=== PATIENT | male | born 1960 | race Caucasian/White ===

== ENCOUNTER → 2016-04-17 | Outpatient (CLI) | payer OTHER ==
--- NOTE | 2016-04-17 10:12 | DX ---
Orbits, 2 views HISTORY: Look for metal in eye, patient is scheduled for MRI exam COMPARISON: None FINDINGS: No metallic foreign material is seen in either orbit. A small metallic fragment is present adjacent to the deep root of a left maxillary tooth implant, which is likely related to predrilling f or the tooth implant post. Impression: No orbital metallic foreign body. Results called to [facility] at 10:05 AM.
== END ==
LOC: CIMAGING 09:21
PROVIDERS: ATTEND Radiology Diagnostic Radiology
DX: Z01.818 Encounter for other preprocedural examination (principal)
CPT/HCPCS: 70200-PO

== ENCOUNTER 2017-02-06 11:04 | Emergency (ER) | payer OTHER ==
[2017-02-06 11:16] VITALS: TEMP 98
[2017-02-06] MEDS ORDERED: CEFAZOLIN 330 MG/ML IM SYRINGE IM ONE (11:57)
--- NOTE | 2017-02-06 12:17 | EDPHY ---
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 He says it initially hurt but now feels "numb ". He denies any other pain or injury. His last tetanus shot was within 10 years. REVIEW OF SYSTEMS: As in HPI, and all other systems reviewed and are negative Smoking Status: Former smoker Physical Exam: General Appearance: Alert and no distress. Eyes: Pupils equal and round no injection. Musculoskeletal: Neck is supple and nontender. Extremities: Right middle finger positive L-shaped laceration through distal tuft of middle finger to include distal 1/3 of of the nail bed with the bone visible underneath, 2 point discrimination intact, distal cap refill less than 3 seconds Skin: No rashes or lesions except as described above. Constitutional: Initial Vital Signs Temperature (C) 36.6 C 02/06/17 11:08 Heart Rate 75 02/06/17 11:08 Respiratory Rate 20 02/06/17 11:08 Blood Pressure 167/82 H 02/06/17 11:08 O2 Sat (%) 97 02/06/17 11:08 O2 Delivery Mode Room Air Allergies/Adverse Reactions: No Known Allergies Allergy (Unverified 02/06/17 12:06) Home Medications: Medication Instructions Recorded Cephalexin 500 mg PO BID #20 capsule 02/06/17 Hydrocodone/APAP 5/325 [[place]ster 1 - 2 tab PO Q4H PRN #7 tab 02/06/17 5/325 (*)] Lisinopril 02/06/17 MDM/Departure - MDM Imaging Results: Imaging Impressions Finger X-Ray 02/06/17 11:17 Impression: 1. Nondisplaced fracture distal tuft right third digit distal phalanx. 2. Possible overlapping of the proximal and distal carpal row. Consider dedicated right wrist series for further characterization as clinically directed. Findings discussed with Sabine Mosley MD at 12:49 hour, 02/06/2017. Imaging: I viewed and interpreted images myself Procedures: Procedure: Nail bed reconstruction and laceration repair. Laceration repair: Verbal consent was obtained from the patient. A nail bed laceration was identified on the middle finger of the right hand. The finger was anesthetized in the usual fashion with a 0.5% Marcaine at finger block. The wound was scrubbed, draped and explored. Bone was visible deep in the wound. The wound was irrigated with a L of normal saline by the emergency department donor support technician fill and the skin was scrubbed with chlorhexidine scrub by myself. The half of the nail plate affected by the injury was removed. The nail bed was reconstructed with 6 0 fast-absorbing gut x5 interrupted sutures. The skin laceration was closed with 6 x 5 0 nylon sutures on the laceration involving the tip of the finger on the palmar side, and 1x 5-0 nylon suture on the ulnar side of the nail bed. The procedure was performed by myself. Medications Given: Discontinued Medications Cefazolin Sodium (Ancef) 1,000 mg IM ONCE ONE PRN Reason: Protocol Stop: 02/06/17 11:58 Last Admin: 02/06/17 12:54 Dose: 1,000 mg ED Course/Re-evaluation: Patient presents with crush injury to distal tip of right middle finger. X-ray shows nondisplaced distal phalanx tuft fracture. Fractured area of the nail was removed to reveal the deep laceration down to bone. Additional nail was removed to allow repair. Please see procedure note. Patient was given a dose of IM and 7 and discharged home on oral cephalexin. I discussed the case with Dr. Momin, hand surgeon communications planner who will see the patient in follow-up. After repair the wound was dressed and splinted. We discussed return precautions including signs and symptoms of infection with patient and his . He is discharged home in improved condition. The radiologist did call because of concern about a problem with the carpal bones over the patient denies any injury to his hand or wrist and there is no tenderness or deformity. Patient states he has an old injury to the base of his thumb from many years ago. - Depart Disposition: Home, Routine, Self-Care Clinical Impression: Open fracture of distal phalanx Injury of nail bed of finger of right hand Qualifiers: Encounter type: initial encounter Qualified Code(s): S69.91XA - Unspecified injury of right wrist, hand and finger(s), initial encounter Condition: Good Instructions: Finger Fracture (ED) Additional Instructions: You were seen by Dr. Sabine Mosley today. Keep the dressing on your hand until you have seen the hand surgeon, Dr. Momin. Please return immediately if he developed fever, increased pain or swelling or pus draining from the wound. Take antibiotics as prescribed. Take ibuprofen or Tylenol as needed for pain. We have scheduled an appointment for you with Dr. Momin, the hand surgeon to follow up on SaturdayFebruary 11 at 3:45 p.m. in [facility] in [place]. Return for any worsening or new concerns. Prescriptions: Cephalexin 500 mg PO BID #20 capsule Hydrocodone/APAP 5/325 [[place]ster 5/325 (*)] 1 - 2 tab PO Q4H PRN #7 tab PRN Reason: Pain, Moderate Referrals: Jeff Edgar DO [Primary Care Provider] - As per Instructions
[2017-02-06] MEDS ORDERED: ceFAZolin 1 GM VIAL ONE (12:36)
[2017-02-06 12:58] VITALS: PULSE 85; RESP 18
[2017-02-06 14:59] VITALS: BP 161/85; O2SAT 96
== END 2017-02-06 14:57 | disposition home or self-care (01) ==
LOC: CED 11:04
PROC: 0HQQXZZ Repair Finger Nail, External Approach (ICD-10-PCS; principal; 2017-02-06)
DX: S61.212A Laceration without foreign body of right middle finger without damage to nail, initial encounter (principal); S62.662A Nondisplaced fracture of distal phalanx of right middle finger, initial encounter for closed fracture; Z87.891 Personal history of nicotine dependence; W22.8XXA Striking against or struck by other objects, initial encounter
CPT/HCPCS: 73140-PO; J0690; L3925